=== PATIENT | female | born 1960 | race Asian ===

== ENCOUNTER 2024-05-23 14:04 | Outpatient (AMB) | payer MEDICAID, SELFPAY ==
[2024-05-23 14:17] VITALS: BP 135/83; PULSE 88; RESP 18; TEMP 36.2; O2SAT 98; BMI 29.8
--- NOTE | 2024-05-23 14:17 | ORTHONT_ITS ---
Vital signs 05/23/24 14:17 Height 1.5 m Height Method Stated Weight 67.217 kg Weight Measurement Method Standing Scale BMI 29.8 BP 135/83 H Blood Pressure Source Automatic Cuff Blood Pressure Location Right Upper Arm Position Sitting Respiration 18 Pulse 88 Pulse Source Monitor Temp 97.1 F Temp Source Temporal Artery Scan Pulse Oximetry (%) 98 Oxygen Delivery Method Room Air Med/Allergies Allergies & Medications Allergies No Known Allergies Allergy (Verified 05/23/24 14:18) Medication Reconciliation aripiprazole 5 mg tablet (Abilify) 5 mg PO QDAY 03/14/19 [History Confirmed 05/23/24] levothyroxine 25 mcg tablet 25 mcg PO QDAY 03/14/19 [History Confirmed 05/23/24] lisinopril 40 mg tablet 40 mg PO QDAY 03/14/19 [History Confirmed 05/23/24] trazodone 100 mg tablet 100 mg PO HS 03/14/19 [History Confirmed 05/23/24] atorvastatin 40 mg tablet 40 mg PO QDAY 11/29/23 [History Confirmed 05/23/24] meloxicam 15 mg tablet 15 mg PO QDAY 11/29/23 [History Confirmed 05/23/24] semaglutide 1 mg/dose (4 mg/3 mL) subcutaneous pen injector (Ozempic) 1 mg subcut QWEEK 11/29/23 [History Confirmed 05/23/24] acetaminophen 500 mg tablet (Acetaminophen Extra Strength) 1,000 mg (2 x 500 mg) PO Q6H PRN pain #90 tabs 12/01/23 [Rx Confirmed 05/23/24] aspirin 81 mg tablet,delayed release 81 mg PO BID #60 tabs 12/01/23 [Rx Confirmed 05/23/24] doxycycline hyclate 100 mg tablet 100 mg PO BID #14 tabs 12/01/23 [Rx Confirmed 05/23/24] gabapentin 300 mg capsule 300 mg PO .qhs #30 caps 12/01/23 [Rx Confirmed 05/23/24] sennosides 8.6 mg-docusate sodium 50 mg tablet (Senna-S) 1 tab-cap PO QDAY #30 tabs 12/01/23 [Rx Confirmed 05/23/24] oxycodone 5 mg tablet 5 mg PO Q6H PRN pain #28 tabs 12/17/23 [Rx Confirmed 05/23/24] Subjective Visit Visit for: follow up visit and knee Immunization / Flu Flu Vaccine in the Last 12 Months: No Flu Vaccine Exclusion Criteria: Refused by Patient and No Exclusion Criteria History of Present Illness Chief complaint: 3 MONTH FOLLOW UP Patient is doing well status post left total knee replacement. She reports the right knee is affecting her quality life and happiness. She has had multiple injections on that side and nonoperative treatment. Personal History Occupation: RETIRED Red flag PMH: none Pain Pain level (0-10): 9 Pain duration: CONSTANT Pain location: inside (medial), outside (lateral), anterior and posterior Pain quality: sharp, dull and aching Pain timing: night and increases with activity Ambulatory data Ambulatory device: cane Treatments Improvement with previous injections: No Improvement with PT: No Improvement with NSAIDS: no Review of Systems Review of Systems: All systems negative unless otherwise noted in HPI. Exam Exam Patient is in no acute distress and is cooperative with the examination today. Patient has a normal mood and affect. Breathing is nonlabored. In no respiratory distress. Bilateral extremities were evaluated and demonstrates sensation intact to light touch. Palpable pedal pulses are present. No significant edema is present. Left knee incision is clean dry intact. Range of motion 0 to 110 degree Right knee demonstrates range of motion from 0 to 110 degrees. There are significant varus deformity. She is tender to palpation medially X-rays of the right knee demonstrate significant varus deformity. She is significant obliteration of the medial joint space. Left knee demonstrates a cementless total knee replacement in good alignment positions Assessment and Plan Problem List (1) History of total left knee replacement: Status: Acute Plan: Patient is doing well status post left total knee replacement. She reports the right knee is affecting her quality life and happiness. We have tried i njections and anti-inflammatories for her. Given her failure of conservative treatment, we discussed that right total knee replacement is a reasonable option. The nature and purpose of the total knee replacement, alternative method(s) of treatment, the material risks involved, and the possibility of complications were fully explained to the patient. The patient does NOT have any of the following contraindications to TKA: - Active infection of the knee joint, OR - Active systemic bacteremia, OR - Active skin infection or open wound at surgical site, OR - Neuropathic arthritis, OR - Severe, rapidly progressive neurological disease, OR - Severe medical condition that makes risks of surgery outweigh the potential benefit The patient was told the most common risks and complications associated with a total knee replacement include, but are not limited to: blood clots in the leg, fatal pulmonary embolism, dislocation of the prosthesis, intraoperative and postoperative fractures of the femur or tibia, infection, failure of the prosthesis or grafting materials, complications from anesthesia, reactions to blood transfusions, postoperative leg length inequality, instability of the knee replacement, nerve damage or injury, vascular injury, delayed wound healing, infection, other injury or even . In addition, there are risks associated with anesthesia given during this operation. Also, the patient was told that after undergoing a total knee replacement there may still be persistent pain or disability. The patient was informed that the success of this operation in part depends upon the mechanical devices which are going to be implanted and that these devices can fail or malfunction, and may need to be repaired or replaced and there are no guarantees as to the longevity of this device or its parts and that it or its parts could fail prematurely. The patient was also notified that during the course of surgery, there may be a need to use bone graft from donors, and that any bone graft used will be carefully screened for communicable diseases, including AIDS, hepatitis, Manolo-Creutzfeldt, or other diseases, but despite the screening procedures, there is a small chance that they could contract one of these diseases. Finally, the patient was asked to follow completely and fully with all advice and recommended treatments, and that recovery and ultimate outcome are affected by their compliance with recommended treatment. We discussed the risks, benefits and treatment alternatives, and the patient is interested in proceeding with surgery. We will try to set this up as expeditiously as possible. Office Procedures GNS Level of Care Nursing/Assessment Patient Status: Established Patient Nursing Assessment/Reassesment: Medication Reconciliation, Update PMH in EMR and Vital Signs Coordination of Care: Complex Care and Chronic Disease 1-5, Education Complex Pt/Fam, Consent,records obtained, informed consent, 1 Ins Authorization, Results/Orders obtained and Staff clarify orders Special Needs: Language special needs Established Patient Charge Established Patient Point Assignment: 110 Established Patient Point Charge: EP Level 3 (80-115) Past Medical History Past Medical History Have you ever been diagnosed with any of the following: Neurological Problems Seizures: No Cardiology Problems Hypercholesterolemia: Yes Congestive Heart Failure: No Hypertension: Yes Respiratory Problems Chronic Obstructive Pulmonary Disease (COPD): No Asthma: Yes Smoking: No Smoking Exposure: No Stomache/Intestinal Problems Obesity: Yes Genital/Urinary Problems Renal Disease: No Reproductive Problems Previous Pregnancies: Yes Musculoskeletal Problems Arthritis: Yes Endocrine Problems Diabetes Mellitus Type 1: No Diabetes Mellitus Type 2: Yes Hypothyroidism: Yes Psychologic Problems Depression: Yes Anxiety: Yes Other Problems Hospitalization: No Shingles: No Blood Transfusions: No Blood Transfusion Reaction: No Anesthesia Reactions: No Cancer: No
== END 2024-05-23 14:18 | disposition home or self-care (01) ==
LOC: HODSRG 14:04
PROVIDERS: Supervising Provider Orthopaedic Surgery Adult Reconstructive Orthopaedic Surgery; Visit Provider Orthopaedic Surgery Adult Reconstructive Orthopaedic Surgery
DX: Z47.1 Aftercare following joint replacement surgery (principal); Z96.652 Presence of left artificial knee joint; I10 Essential (primary) hypertension; E78.00 Pure hypercholesterolemia, unspecified
CPT/HCPCS: 99213; G0463

== ENCOUNTER 2024-06-23 10:35 | Outpatient (AMB) | payer MEDICAID, SELFPAY ==
[2024-06-23 10:49] VITALS: BP 140/100; PULSE 75; RESP 18; TEMP 37; O2SAT 99
--- NOTE | 2024-06-23 10:49 | PD.ORTHCLVIS ---
Vital signs 06/23/24 10:49 Weight 65.516 kg Weight Measurement Method Standing Scale BP 140/100 H Blood Pressure Source Automatic Cuff Blood Pressure Location Left Upper Arm Position Sitting Respiration 18 Pulse 75 Pulse Source Monitor Temp 98.6 F Temp Source Oral Pulse Oximetry (%) 99 Oxygen Delivery Method Room Air Med/Allergies Allergies & Medications Allergies No Known Allergies Allergy (Verified 06/07/24 07:42) Subjective Immunization / Flu Flu Vaccine in the Last 12 Months: No Flu Vaccine Exclusion Criteria: Already Received History of Present Illness Chief complaint: Bilateral knee pain Patient is doing well status post bilateral total knee replacement. She is doing fantastic is using no assistive device Pain Pain level (0-10): 6 Pain duration: comes and goes Pain location: inside (medial), outside (lateral), anterior and posterior Pain quality: sharp Pain timing: increases with activity Associated signs & symptoms: numbness Ambulatory data Ambulatory device: none Review of Systems Review of Systems: All systems negative unless otherwise noted in HPI. Exam Exam Patient is in no acute distress and is cooperative with the examination today. Patient has a normal mood and affect. Breathing is nonlabored. In no respiratory distress. Bilateral extremities were evaluated and demonstrates sensation intact to light touch. Palpable pedal pulses are present. No significant edema is present. Bilateral knee incisions are clean dry intact Assessment and Plan Problem List (1) History of total left knee replacement: Status: Acute Plan: Patient is status post bilateral total knee replacement that was staged. The most recent side was the right and she is doing well. She should continue with outpatient physical therapy Plan We will see her back in 4 to 6 weeks for routine follow-up Office Procedures GNS Level of Care Nursing/Assessment Patient Status: Established Patient Nursing Assessment/Reassesment: Medication Reconciliation, Update PMH in EMR and Vital Signs Coordination of Care: Complex Care and Chronic Disease 1-5, Education Complex Pt/Fam, Consent,records obtained, informed consent, Results/Orders obtained and Staff clarify orders Established Patient Charge Established Patient Point Assignment: 95 Established Patient Point Charge: EP Level 3 (80-115) Past Medical History Past Medical History Have you ever been diagnosed with any of the following: Neurological Problems Seizures: No Cardiology Problems Hypercholesterolemia: Yes Congestive Heart Failure: No Hypertension: Yes Respiratory Problems Chronic Obstructive Pulmonary Disease (COPD): No Asthma: No Smoking: No Smoking Exposure: No Stomache/Intestinal Problems Hepatitis: No Obesity: Yes Genital/Urinary Problems Renal Disease: No Reproductive Problems Previous Pregnancies: Yes Musculoskeletal Problems Arthritis: Yes Endocrine Problems Diabetes Mellitus Type 1: No Diabetes Mellitus Type 2: Yes Hypothyroidism: Yes Psychologic Problems Depression: Yes Anxiety: Yes Other Problems Hospitalization: No Shingles: No Blood Transfusions: No Blood Transfusion Reaction: No Anesthesia Reactions: No Cancer: No
== END 2024-06-23 11:20 | disposition home or self-care (01) ==
LOC: HODSRG 10:35
PROVIDERS: Supervising Provider Orthopaedic Surgery Adult Reconstructive Orthopaedic Surgery; Visit Provider Orthopaedic Surgery Adult Reconstructive Orthopaedic Surgery
DX: Z96.653 Presence of artificial knee joint, bilateral (principal); I10 Essential (primary) hypertension; E78.00 Pure hypercholesterolemia, unspecified; E11.9 Type 2 diabetes mellitus without complications
CPT/HCPCS: 99213; G0463

== ENCOUNTER 2024-07-28 09:31 | Outpatient (AMB) | payer MEDICAID, SELFPAY ==
--- NOTE | 2024-07-28 10:01 | PD.ORTHCLVIS ---
Vital signs 07/28/24 10:02 Height 1.47 m Height Method Stated Weight 62.312 kg Weight Measurement Method Standing Scale BMI 28.8 BP 141/87 H Blood Pressure Source Automatic Cuff Blood Pressure Location Right Upper Arm Position Sitting Respiration 19 Pulse 73 Pulse Source Monitor Temp 96.9 F Temp Source Temporal Artery Scan Pulse Oximetry (%) 98 Oxygen Delivery Method Room Air Med/Allergies Allergies & Medications Allergies No Known Allergies Allergy (Verified 07/28/24 10:08) Medication Reconciliation levothyroxine 25 mcg tablet 25 mcg PO QDAY 03/14/19 [History Confirmed 07/28/24] atorvastatin 40 mg tablet 40 mg PO QDAY 11/29/23 [History Confirmed 07/28/24] meloxicam 15 mg tablet 15 mg PO QDAY 11/29/23 [History Confirmed 07/28/24] semaglutide 1 mg/dose (4 mg/3 mL) subcutaneous pen injector (Ozempic) 1 mg subcut QWEEK 11/29/23 [History Confirmed 07/28/24] baclofen 10 mg tablet 10 mg PO QDAY 06/05/24 [History Confirmed 07/28/24] fluticasone propionate 50 mcg/actuation nasal spray,suspension 1 spray intranasal QDAY 06/05/24 [History Confirmed 07/28/24] furosemide 20 mg tablet 20 mg PO DAILY 06/05/24 [History Confirmed 07/28/24] gabapentin 300 mg capsule 300 mg PO .qhs PRN Pain 06/05/24 [History Confirmed 07/28/24] hydrochlorothiazide 25 mg tablet 25 mg PO QAM 06/05/24 [History Confirmed 07/28/24] metformin 500 mg tablet 500 mg PO BID 06/05/24 [History Confirmed 07/28/24] acetaminophen 500 mg tablet (Acetaminophen Extra Strength) 1,000 mg (2 x 500 mg) PO Q6H PRN pain #90 tabs 06/07/24 [Rx Confirmed 07/28/24] gabapentin 300 mg capsule 300 mg PO .qhs #30 caps 06/07/24 [Rx Confirmed 07/28/24] oxycodone 5 mg tablet 5 mg PO Q6H PRN pain #28 tabs 06/07/24 [Rx Confirmed 07/28/24] Exam Exam Patient is in no acute distress and is cooperative with the examination today. Patient has a normal mood and affect. Breathing is nonlabored. In no respiratory distress. Bilateral extremities were evaluated and demonstrates sensation intact to light touch. Palpable pedal pulses are present. No significant edema is present. Bilateral knee incisions are clean dry intact Range of motion is 0 to 120 degrees. Incisions are clean dry and intact. Assessment and Plan Problem List (1) History of total left knee replacement: Status: Acute Plan: Patient is status post bilateral total knee replacement that was staged. The most recent side was the right and she is doing well. She should continue with outpatient physical therapy Plan We will see her in 3 months for top fall Office Procedures GNS Level of Care Nursing/Assessment Patient Status: Established Patient Nursing Assessment/Reassesment: Medication Reconciliation, Update PMH in EMR and Vital Signs Coordination of Care: Complex Care and Chronic Disease 1-5, Education Complex Pt/Fam, Consent,records obtained, informed consent, Results/Orders obtained and Staff clarify orders Special Needs: Language special needs Established Patient Charge Established Patient Point Assignment: 95 Established Patient Point Charge: EP Level 3 (80-115) MA Intake Visit Data Collection New Patient or Established: Established Patient (seen at [facility] within 3 years) Reason for Visit:: 5 WK POST OP F/U Seen by Clinical Staff ONLY (RN/MA): No Verbal consent obtained for Telemed visit?: No [employer] Required: Yes PCP or OBGYN visit in last 3 months: Yes Hx Now: No Do You Feel Safe at Home: Yes Authorities Contacted: N/A Questionairres Past Medical History Past Medical History Have you ever been diagnosed with any of the following: Neurological Problems Seizures: No Cardiology Problems Hypercholesterolemia: Yes Congestive Heart Failure: No Hypertension: Yes Respiratory Problems Chronic Obstructive Pulmonary Disease (COPD): No Asthma: No Smoking: No Smoking Exposure: No Stomache/Intestinal Problems Hepatitis: No Obesity: Yes Genital/Urinary Problems Renal Disease: No Reproductive Problems Previous Pregnancies: Yes Musculoskeletal Problems Arthritis: Yes Endocrine Problems Diabetes Mellitus Type 1: No Diabetes Mellitus Type 2: Yes Hypothyroidism: Yes Psychologic Problems Depression: Yes Anxiety: Yes Other Problems Hospitalization: No Shingles: No Blood Transfusions: No Blood Transfusion Reaction: No Anesthesia Reactions: No Cancer: No Subjective Visit Visit for: follow up visit, post op #3 and knee Immunization / Flu Flu Vaccine in the Last 12 Months: No Flu Vaccine Exclusion Criteria: No Exclusion Criteria History of Present Illness Chief complaint: 5 WK POST OP F/U Date of injury / onset of symptoms: 06/07/24 Knee is doing well 6-week status post right total knee replacement. She has minimal pain is walking with no assistive device. She is happy Personal History Occupation: UNEMPLOYED Pain Pain level (0-10): 0 Pain duration: NONE Associated signs & symptoms: none Ambulatory data Ambulatory device: none Treatments Improvement with previous injections: No Improvement with PT: No Improvement with NSAIDS: n/a Review of Systems Review of Systems: All systems negative unless otherwise noted in HPI.
[2024-07-28 10:02] VITALS: BP 141/87; PULSE 73; RESP 19; TEMP 36.1; O2SAT 98; BMI 28.8
== END 2024-07-28 10:21 | disposition home or self-care (01) ==
LOC: HODSRG 09:31
PROVIDERS: Supervising Provider Orthopaedic Surgery Adult Reconstructive Orthopaedic Surgery; Visit Provider Orthopaedic Surgery Adult Reconstructive Orthopaedic Surgery
DX: Z96.652 Presence of left artificial knee joint (principal)
CPT/HCPCS: 99213; G0463